=== PATIENT | female | born 1955 | race Caucasian/White ===

== ENCOUNTER 2023-04-19 05:07 | Day surgery (SDC) | payer OTHER, BC ==
[2023-04-18 10:16] VITALS: BMI 25.1
[2023-04-19 13:13] VITALS: TEMP 97.5
[2023-04-19 13:36] VITALS: RESP 14
[2023-04-19 13:58] VITALS: BP 117/65; PULSE 63
== END 2023-04-19 13:49 | disposition home or self-care (01) ==
LOC: JASU-ENDO 05:07
PROVIDERS: ATTEND Internal Medicine Gastroenterology
PROC: 0DJD8ZZ Inspection of Lower Intestinal Tract, Via Natural or Artificial Opening Endoscopic (ICD-10-PCS; principal; 2023-04-19 11:30)
DX: Z12.11 Encounter for screening for malignant neoplasm of colon (principal); K57.30 Diverticulosis of large intestine without perforation or abscess without bleeding; K64.8 Other hemorrhoids